=== PATIENT | male | born 1965 | race Caucasian/White ===

== ENCOUNTER 2019-02-23 16:43 | Emergency (ER) | payer OTHER ==
[~2019-02-23] VITALS: Ht 160 cm; Wt 86.2 kg
--- NOTE | 2019-02-23 16:55 | NUR ---
Patient "woke up today with puffy eyes, hands and swollen feet. Patient placed on a monitor, breathing even and unlabored, no sob noted. Kept comfortable. Waiting for MD
--- NOTE | 2019-02-23 17:00 | NUR ---
dr. colunga at bedside for evaluation.
[2019-02-23] MEDS ORDERED: methylPREDNISolone SOD SUCC 125 MG/2ML VIAL ONE (17:08)
[2019-02-23] MEDS ORDERED: diphenhydrAMINE HCL 50 MG/ML VIAL ONE (17:08)
[2019-02-23] MEDS ORDERED: FAMOTIDINE (20 MG) 20 MG TABLET ONE (17:08)
[2019-02-23] MEDS ORDERED: EPINEPHRINE (1:1000) 1 MG/ML AMPUL ONE (17:08)
[2019-02-23] MEDS ORDERED: diphenhydrAMINE HCL 50 MG/ML VIAL IV ONE (17:30)
[2019-02-23] MEDS ORDERED: methylPREDNISolone SOD SUCC 125 MG/2ML VIAL IM ONE (17:30)
[2019-02-23] MEDS ORDERED: FAMOTIDINE (20 MG) 20 MG TABLET PO ONE (17:30)
[2019-02-23] MEDS ORDERED: EPINEPHRINE (1:1000) MDV 30 MG/30ML VIAL SUBCUT ONE (17:30)
--- NOTE | 2019-02-23 19:47 | NUR ---
ENDORSED TO [facility] FOR [facility].
--- NOTE | 2019-02-23 20:00 | NUR ---
Patient discharged to home in stable condition. Written and verbal after care instructions given. Patient verbalizes understanding of instruction. IV removed. Catheter intact and site benign. Pressure and 4x4 applied to site. No bleeding noted.
[2019-02-23 20:01] VITALS: BP 136/72
== END 2019-02-23 20:01 | disposition home or self-care (01) ==
LOC: ER 16:46
DX: L50.0 Allergic urticaria (principal); R21 Rash and other nonspecific skin eruption; I10 Essential (primary) hypertension; E78.5 Hyperlipidemia, unspecified; Z60.2 Problems related to living alone
CPT/HCPCS: 96372 ×2; 96374; 99283; J0171 ×2; J1200; J2930

== ENCOUNTER 2019-03-10 08:02 | Emergency (ER) | payer OTHER ==
[~2019-03-10] VITALS: Ht 162.6 cm; Wt 83.9 kg
[2019-03-10 08:08] VITALS: BP 123/88
[2019-03-10] MEDS ORDERED: diphenhydrAMINE HCL 25 MG CAPSULE ONE (08:44)
[2019-03-10] MEDS ORDERED: diphenhydrAMINE HCL 25 MG CAPSULE PO ONE (09:00)
--- NOTE | 2019-03-10 09:46 | NUR ---
For Discharge Aftercare Instructions given Verbalized understanding. Home ambulatory- stable
== END 2019-03-10 09:50 | disposition home or self-care (01) ==
LOC: ER 08:06
DX: K12.2 Cellulitis and abscess of mouth (principal); I10 Essential (primary) hypertension; E78.5 Hyperlipidemia, unspecified; Z60.2 Problems related to living alone
CPT/HCPCS: 87070; 87880; 99283; Q0163; 86403-TC